=== PATIENT | male | born 1940 | race Caucasian/White ===

== ENCOUNTER → 2018-07-07 | Outpatient (CLI) | payer OTHER, MEDICARE ==
[2018-07-07 14:34] LABS: CREATININE 0.9 mg/dL (0.7-1.3)
== END ==
LOC: CAT 13:56
PROVIDERS: Family Medicine
DX: K80.20 Calculus of gallbladder without cholecystitis without obstruction (principal); N28.1 Cyst of kidney, acquired

== ENCOUNTER 2019-03-31 10:45 | Emergency (ER) | payer OTHER, MEDICARE ==
[~2019-03-31] VITALS: Ht 167.6 cm; Wt 70.3 kg
[2019-03-31] MEDS ORDERED: NORVASC5 MG PO (10:57)
[2019-03-31] MEDS ORDERED: IRBESARTAN300 MG PO (10:57)
[2019-03-31] MEDS ORDERED: NORFLEX100 MG PO (12:01)
[2019-03-31] MEDS ORDERED: PREDNISONE 10 M10 MG PO (12:01)
[2019-03-31 12:19] VITALS: BP 119/77
== END 2019-03-31 12:20 | disposition home or self-care (01) ==
LOC: ER 10:45
DX: M53.3 Sacrococcygeal disorders, not elsewhere classified (principal); I10 Essential (primary) hypertension

== ENCOUNTER → 2019-04-22 | Outpatient (CLI) | payer OTHER, MEDICARE ==
[~2019-04-22] MED LIST: IRBESARTAN300 MG PO; NORFLEX100 MG PO; NORVASC5 MG PO; PREDNISONE 10 M10 MG PO
== END ==
LOC: MRI 13:44
DX: M47.816 Spondylosis without myelopathy or radiculopathy, lumbar region (principal); M48.061 Spinal stenosis, lumbar region without neurogenic claudication; M89.38 Hypertrophy of bone, other site

== ENCOUNTER 2021-06-29 13:03 | Emergency (ER) | payer OTHER, MEDICARE ==
[~2021-06-29] VITALS: Ht 167.6 cm; Wt 72.6 kg
[2021-06-29 13:04] VITALS: BP 177/74
== END 2021-06-29 16:05 | disposition home or self-care (01) ==
LOC: ER 13:03
DX: S52.501A Unspecified fracture of the lower end of right radius, initial encounter for closed fracture (principal); I10 Essential (primary) hypertension; Z79.899 Other long term (current) drug therapy; Z79.891 Long term (current) use of opiate analgesic; V49.3XXA Car occupant (driver) (passenger) injured in unspecified nontraffic accident, initial encounter; Y93.89 Activity, other specified; Y92.89 Other specified places as the place of occurrence of the external cause; Y99.8 Other external cause status